=== PATIENT | female | born 1965 | race Caucasian/White ===

== ENCOUNTER 2017-05-30 15:38 | Emergency (ER) | payer BC ==
[2017-05-30] MEDS ORDERED: Dextrose 5%-0.45% NaCl 1,000 ML IV SCH (16:00)
[2017-05-30] MEDS ORDERED: Potassium Chloride 20 MEQ Tab.ER PO ONE (17:16)
--- NOTE | 2017-05-30 17:41 | EDM.PDOC ---
ED HPI GENERAL MEDICAL PROBLEM - General Chief Complaint: Diabetic Complaint Stated Complaint: MEDICAL Time Seen by Provider: 05/30/17 16:00 Source of Information: Reports: Patient, Family History Limitations: Reports: No Limitations - History of Present Illness Onset: Today, Other (pt was found to hve a bs of 19. ) Duration: Hour(s): Location: Reports: Generalized Associated Symptoms: Reports: Diaphoresis, Other (pt only had a piece of toast and peanut butter for lunch. She did lay down and when she was found her sugar was 19. ) back Pain Score (Numeric/FACES): 6 - Related Data Allergies Allergy/AdvReac Type Severity Reaction Status Date / Time No Known Allergies Allergy Verified 12/20/15 13:59 Home Meds: Home Meds Multivitamin [Multi-Vitamin Daily] 1 tab PO DAILY 05/20/14 [History] Aspirin 325 mg PO DAILY 05/29/14 [History] Niacin 1 tab PO ACBREAKFAST 05/29/14 [History] Simvastatin [Zocor] 20 mg PO DAILY 05/29/14 [History] buPROPion HCl [Wellbutrin SR] 150 mg PO DAILY 05/29/14 [History] Gabapentin [Neurontin] 300 mg PO BEDTIME 04/04/15 [History] Alum Hydrox/Mag Hydrox/Simeth [Mag-Al Plus] 30 ml PO QID PRN #1 bottle 04/12/15 [Rx] Glucagon,Human Recombinant [Glucagon Emergency Kit] 1 mg IM ASDIRECTED PRN 04/27 [History] Acetaminophen [Tylenol Arthritis Pain] 650 mg PO Q6H PRN 08/20/15 [History] Propranolol [Inderal] 10 mg PO BID 08/20/15 [History] Subcutaneous Insulin Pump [Insulin Pump] 1 each SQ ASDIRECTED 09/23/15 [History] Past Medical History HEENT History: Reports: Impaired Vision Cardiovascular History: Reports: Arrhythmia, High Cholesterol Other Cardiovascular History: recent fluid around the heart Gastrointestinal History: Reports: Chronic Constipation, GERD Other Gastrointestinal History: gastroporesis Genitourinary History: Reports: UTI, Recurrent Musculoskeletal History: Reports: Arthritis, Back Pain, Chronic, Fracture, Neck Pain, Chronic, Osteoporosis Other Musculoskeletal History: degenerative disc disease Neurological History: Reports: Neuropathy, Diabetic Psychiatric History: Reports: Anxiety, Depression Endocrine/Metabolic History: Reports: Diabetes, Type I, IDDM, Osteoporosis Hematologic History: Reports: B12 Deficiency - Infectious Disease History Infectious Disease History: Reports: Chicken Pox - Past Surgical History HEENT Surgical History: Reports: Cataract Surgery, Oral Surgery GI Surgical History: Reports: Bariatric Procedure, EGD Other GI Surgeries/Procedures: gastroporesis so bariatric procedure 2017 Female Surgical History: Reports: Breast Biopsy, Cervical Cryotherapy, Tubal Ligation Endocrine Surgical History: Reports: Other (See Below) Neurological Surgical History: Reports: C-Spine, Laminectomy, Spinal Fusion Musculoskeletal Surgical History: Reports: Carpal Tunnel Other Musculoskeletal Surgeries/Procedures:: wrist surgery r Social & Family History - Family History Family Medical History: Noncontributory HEENT: Reports: Otitis Media, Sinusitis Cardiac: Reports: High Cholesterol, Hypertension : Reports: UTI, Recurrent Neurological: Reports: Parkinson's Endocrine/Metabolic: Reports: Diabetes, type II Oncologic: Reports: Lung, Uterine - Tobacco Use Smoking Status *Q: Former Smoker Years of Tobacco use: 20 Packs/Tins Daily: 1 Used Tobacco, but Quit: Yes Month Tobacco Last Used: February Second Hand Smoke Exposure: No - Caffeine Use Caffeine Use: Reports: Coffee, Soda - Alcohol Use Days Per Week of Alcohol Use: 5 Number of Drinks Per Day: 2 Total Drinks Per Week: 10 - Recreational Drug Use Recreational Drug Use: No - Living Situation & Occupation Living situation: Reports: Occupation: Employed ED ROS GENERAL - Review of Systems Review Of Systems: See Below Constitutional: Reports: No Symptoms HEENT: Reports: No Symptoms Respiratory: Reports: No Symptoms Cardiovascular: Reports: No Symptoms Endocrine: Reports: Low Glucose GI/Abdominal: Reports: No Symptoms : Reports: No Symptoms Musculoskeletal: Reports: No Symptoms Neurological: Reports: Other (pt was not responding at that time. ) Psychiatric: Reports: No Symptoms ED EXAM GENERAL NO PERIP PULSE - Physical Exam Exam: See Below Text/Narrative:: When pt arrived he had gotten 2 amps of d50 and her sugar was 100, Exam Limited By: No Limitations General Appearance: Alert, Lethargic, Other (pupils equal and reactive. ) Ears: Normal TMs Nose: Normal Inspection Throat/Mouth: Normal Inspection Head: Atraumatic Neck: Normal Inspection Respiratory/Chest: No Respiratory Distress Cardiovascular: Regular Rate, Rhythm GI/Abdominal: Soft, Non-Tender (Female) Exam: Deferred Rectal (Female) Exam: Deferred Back Exam: Normal Inspection Extremities: Normal Inspection Neurological: Alert, Oriented, Normal Cognition Psychiatric: Normal Affect Course - Vital Signs Last Recorded V/S: Last Vital Signs Temp 36.1 C 05/30/17 16:30 Pulse 89 05/30/17 17:22 Resp 16 05/30/17 17:03 BP 161/96 H 05/30/17 17:22 Pulse Ox 97 05/30/17 17:22 - Orders/Labs/Meds Orders: Active Orders 24 hr Category Date Time Status UA W/MICROSCOPIC [URIN] Urgent Lab 05/30/17 17:26 Received Dextrose 5%-0.45% NaCl [Dextrose 5%-1/2 NS] 1,000 ml Med 05/30/17 16:00 Active IV ASDIRECTED Medication Orders Dextrose/Sodium Chloride (Dextrose 5%-1/2 Ns) 1,000 mls @ 200 mls/hr IV ASDIRECTED KIMI Last Admin: 05/30/17 16:19 Dose: 200 mls/hr Labs: Laboratory Tests 05/30/17 05/30/17 Range/Units 15:51 15:51 WBC 7.6 (4.5-11.0) K/uL RBC 4.08 (3.30-5.50) M/uL Hgb 13.9 D (12.0-15.0) g/dL Hct 41.3 (36.0-48.0) % MCV 101 H (80-98) fL MCH 34 H (27-31) pg MCHC 34 (32-36) % Plt Count 290 (150-400) K/uL Neut % (Auto) 68 H (36-66) % Lymph % (Auto) 19 L (24-44) % Edwards % (Auto) 10 H (2-6) % Eos % (Auto) 3 (2-4) % Baso % (Auto) 1 (0-1) % Sodium 144 (140-148) mmol/L Potassium 3.5 L (3.6-5.2) mmol/L Chloride 106 (100-108) mmol/L Carbon Dioxide 26 (21-32) mmol/L Anion Gap 15.5 H (5.0-14.0) mmol/L BUN 15 D (7-18) mg/dL Creatinine 0.8 (0.6-1.0) mg/dL Est Cr Clr Drug Dosing TNP Estimated GFR (MDRD) > 60 (>60) Glucose 95 (74-106) mg/dL Calcium 8.5 (8.5-10.1) mg/dL Total Bilirubin 0.4 (0.2-1.0) mg/dL AST 61 H D (15-37) U/L ALT 57 (12-78) U/L Alkaline Phosphatase 167 H D (46-116) U/L Total Protein 7.7 (6.4-8.2) g/dL Albumin 3.7 (3.4-5.0) g/dL Globulin 4.0 H (2.3-3.5) g/dL Albumin/Globulin Ratio 0.9 L (1.2-2.2) Meds: Medications Generic Name Dose Route Start Last Admin Trade Name Freq PRN Reason Stop Dose Admin Dextrose/Sodium Chloride 1,000 mls @ 200 mls/hr 05/30/17 16:00 05/30/17 16:19 Dextrose 5%-1/2 Ns IV 200 mls/hr ASDIRECTED KIMI Administration Discontinued Medications Generic Name Dose Route Start Last Admin Trade Name Freq PRN Reason Stop Dose Admin Potassium Chloride 20 meq 05/30/17 17:16 05/30/17 17:25 Klor-Con M20 PO 05/30/17 17:17 20 meq ONETIME ONE Administration - Re-Assessments/Exams Free Text/Narrative Re-Assessment/Exam: 05/30/17 17:41 pt ate when she got here. D5 an 1/2 normal was started . Within 1/2 hour her sugar was 160. The d5 was stopped. Will check her sugar at about 6 and is she doing ok she can go home Departure - Departure Time of Disposition: 17:50 Disposition: Home, Self-Care 01 Condition: Fair Clinical Impression: Hypoglycemia - Discharge Information Instructions: Type 1 Diabetes Mellitus, Adult Referrals: PCP,None [Primary Care Provider] - Care Plan Goals: check bs for the next 2 hours. If sugars are holding turn the pump back on and eat again. Eat frequently to maintain calories. - My Orders Last 24 Hours: My Active Orders 05/30/17 16:00 Dextrose 5%-0.45% NaCl [Dextrose 5%-1/2 NS] 1,000 ml IV ASDIRECTED 05/30/17 17:26 UA W/MICROSCOPIC [URIN] Urgent - Assessment/Plan Last 24 Hours: My Active Orders 05/30/17 16:00 Dextrose 5%-0.45% NaCl [Dextrose 5%-1/2 NS] 1,000 ml IV ASDIRECTED 05/30/17 17:26 UA W/MICROSCOPIC [URIN] Urgent
[2017-05-30 17:49] VITALS: BP 161/96
== END 2017-05-30 18:10 | disposition home or self-care (01) ==
LOC: JP.ED 15:38
DX: E10.649 Type 1 diabetes mellitus with hypoglycemia without coma (principal); E10.40 Type 1 diabetes mellitus with diabetic neuropathy, unspecified; F32.9 Major depressive disorder, single episode, unspecified; Z79.899 Other long term (current) drug therapy; Z87.440 Personal history of urinary (tract) infections; Z87.891 Personal history of nicotine dependence
CPT/HCPCS: 36415; 80053; 81001; 82962; 85025; 99285; A9270

== ENCOUNTER 2022-05-07 14:10 | Emergency (ER) | payer BC ==
[2022-05-07 14:37] VITALS: BP 217/103; PULSE 84
== END 2022-05-07 15:59 | disposition home or self-care (01) ==
LOC: JP.ED 14:10
DX: S83.91XA Sprain of unspecified site of right knee, initial encounter (principal); E78.00 Pure hypercholesterolemia, unspecified; E10.9 Type 1 diabetes mellitus without complications; Z79.899 Other long term (current) drug therapy; Z79.82 Long term (current) use of aspirin; Z79.4 Long term (current) use of insulin; X50.1XXA Overexertion from prolonged static or awkward postures, initial encounter
CPT/HCPCS: 73562-RT; 99283

== ENCOUNTER 2024-08-31 07:10 | Emergency (ER) | payer OTHER ==
[2024-08-31 10:51] VITALS: BP 124/55; PULSE 91
== END 2024-08-31 10:57 | disposition home or self-care (01) ==
LOC: JP.ED 07:10
DX: L03.116 Cellulitis of left lower limb (principal); E10.40 Type 1 diabetes mellitus with diabetic neuropathy, unspecified; F17.210 Nicotine dependence, cigarettes, uncomplicated; Z79.82 Long term (current) use of aspirin; Z79.4 Long term (current) use of insulin; Z79.899 Other long term (current) drug therapy
CPT/HCPCS: 93971-LT; 99283

== ENCOUNTER 2025-04-15 10:12 | Inpatient (IN) | payer OTHER ==
[2025-04-15] MEDS ORDERED: Non-Formulary Medication 1 Each (Cyclobenzaprine [Flexeril] 10 MG Tablet) PO PRN (10:31)
[2025-04-15] MEDS ORDERED: Magnesium Hydroxide 400 MG/5 ML Susp 30 ML Cup PO PRN (10:31)
[2025-04-15] MEDS ORDERED: Ondansetron 4 MG Tab.DIS PO PRN (10:31)
[2025-04-15] MEDS: Insulin Lispro 100 Unit/ML 3 ML KwikPen SUBCUT SCH (17:00)
[2025-04-15] MEDS ORDERED: Non-Formulary Medication 1 Each (Simvastatin [Simvastatin] 20 MG Tablet) PO SCH (21:00)
[2025-04-15] MEDS: Insulin Glargine,Human Rec. Analog 100 Units/ML 3 ML Pen SUBCUT SCH (21:37)
[2025-04-15] MEDS: Aspirin 325 MG Tab.EC PO SCH (21:39)
[2025-04-20] MEDS: Sennosides/Docusate Sodium 50-8.6 MG Tab PO PRN (19:40)
[2025-04-22 13:26] VITALS: BP 152/77; PULSE 114
== END 2025-04-22 13:50 | disposition home or self-care (01) | DRG 561 ==
LOC: MERGE 10:12 → JP.MS 10:12
PROVIDERS: ADMIT Internal Medicine; ATTEND Student in an Organized Health Care Education/Training Program
DX: S72.145D Nondisplaced intertrochanteric fracture of left femur, subsequent encounter for closed fracture with routine healing (principal); F17.200 Nicotine dependence, unspecified, uncomplicated; E11.9 Type 2 diabetes mellitus without complications; Z79.899 Other long term (current) drug therapy; Z79.4 Long term (current) use of insulin; Z79.82 Long term (current) use of aspirin; Z79.891 Long term (current) use of opiate analgesic
CPT/HCPCS: 73552-26-LT; 73552-LT; 82947; 97110-GP; 97116-GP; 97161-GP; 97165-GO; 97530-GP; 97535-GO; 99305; 99308; 99315; A9270-GY